=== PATIENT | male | born 1995 | race Caucasian/White ===

== ENCOUNTER 2020-12-04 20:52 | Emergency (ER) | payer BC, OTHER ==
[~2020-12-04] VITALS: Ht 182.9 cm; Wt 104.3 kg
[2020-12-04 21:00] VITALS: BP_SYST 142
== END 2020-12-04 21:50 | disposition left against medical advice (07) ==
LOC: SED 20:52
DX: S70.361A Insect bite (nonvenomous), right thigh, initial encounter (principal); W57.XXXA Bitten or stung by nonvenomous insect and other nonvenomous arthropods, initial encounter; Y93.89 Activity, other specified; Y92.89 Other specified places as the place of occurrence of the external cause; Y99.8 Other external cause status; Z53.21 Procedure and treatment not carried out due to patient leaving prior to being seen by health care provider

== ENCOUNTER 2021-01-14 10:10 | Emergency (ER) | payer BC, SELFPAY ==
[~2021-01-14] VITALS: Ht 180.3 cm; Wt 104.3 kg
[2021-01-14 10:12] VITALS: BP_SYST 130
--- NOTE | 2021-01-14 10:12 | NUR ---
Patient to ER TENT 1 to gown for evaluation. Side rails up.
--- NOTE | 2021-01-14 10:15 | NUR ---
PT CAME IN FROM HOME C/O WAKING UP THIS AM WITH COUGH AND WHEEZING, FELT SOB UPON WAKING UP. PRESENTS AMBULATORY, EVEN UNLABORED RESPIRATIONS, NO DISTRESS, V/S STABLE. STATES HE WAS COVID + 14 DAYS AGO. DENIES PAIN, DENIES FEVER, CHILLS.
--- NOTE | 2021-01-14 10:27 | NUR ---
ER DR. SLAUGHTER EXAMINING PT
[2021-01-14] MEDS ORDERED: ALBU8.5H8 INH (11:42)
[2021-01-14] MEDS ORDERED: PRED20TA PO (11:42)
--- NOTE | 2021-01-14 11:53 | NUR ---
Patient given written and verbal discharge instructions and verbalizes understanding. ER Dr. Weston discussed with patient the results and treatment provided. Patient in stable condition. ID arm band removed. Rx of Albuterol and Prednisone given. Patient educated on pain management and to follow up with PMD. Pain Scale 0. Opportunity for questions provided and answered. Medication side effect fact sheet provided.
[2021-01-14 11:54] VITALS: BP_SYST 130
== END 2021-01-14 11:53 | disposition home or self-care (01) ==
LOC: SED 10:10
DX: J40 Bronchitis, not specified as acute or chronic (principal)
CPT/HCPCS: 71045; 99283

== ENCOUNTER 2022-10-31 04:16 | Emergency (ER) | payer BC ==
[~2022-10-31] VITALS: Ht 180.3 cm; Wt 106.6 kg
[~2022-10-31 04:16] MED LIST: ALBU8.5H8 INH; PRED20TA PO
[2022-10-31 04:37] VITALS: BP_SYST 141; PULSE 87; RESP 19; TEMP 97.5; O2SAT 100
[2022-10-31] MEDS ORDERED: NACL 0.9% 1,000 ML IV ONE (05:00)
[2022-10-31] MEDS ORDERED: KETOROLAC TROMETHAMINE 15 MG VIAL IVP ONE (05:00)
[2022-10-31] MEDS ORDERED: ONDANSETRON HCL 4 MG/2 ML VIAL ONE (05:22)
[2022-10-31] MEDS ORDERED: ONDANSETRON 4 MG ODT TAB PO ONE (05:30)
[2022-10-31 05:35] LABS: BASOPHILS # (AUTO) 0.2 K/uL (0.0-0.2); BASOPHILS % (AUTO) 1.6 % (0.0-2.0); EOSINOPHILS # (AUTO) 0.1 K/uL (0.0-0.4); EOSINOPHILS % (AUTO) 0.8 % (0.0-4.0); HEMATOCRIT 44.2 % (36-54); HEMOGLOBIN 14.8 g/dL (14.0-18.0); LYMPHOCYTES # (AUTO) 2.9 K/uL (1.0-5.5); LYMPHOCYTES % (AUTO) 25.2 % (20.5-51.5); MEAN CORPUSCULAR HEMOGLOBIN 27 pg (27-31); MEAN CORPUSCULAR HGB CONC 33 % (32-36); MEAN CORPUSCULAR VOLUME 79 fL (79.0-98.0); MONOCYTES # (AUTO) 0.8 K/uL (0.0-1.0); MONOCYTES % (AUTO) 6.7 % (1.7-9.3); NEUTROPHILS # (AUTO) 7.7 K/uL (1.8-7.7); NEUTROPHILS % (AUTO) 65.7 % (40.0-70.0); PLATELET COUNT (AUTO) 227 K/uL (130-430); RED BLOOD CELL COUNT(AUTO) 5.57 MIL/uL (4.2-6.2); RED CELL DISTRIBUTION WIDTH 13.9 % (9.0-15.0); WHITE BLOOD COUNT (AUTO) 11.7 K/uL (4.8-10.8)
[2022-10-31] MEDS ORDERED: ONDANSETRON HCL 4 MG/2 ML VIAL IVP ONE (05:45)
[2022-10-31] MEDS ORDERED: ONDA-8 TL (05:59)
[2022-10-31] MEDS ORDERED: LOPE2CAP PO (05:59)
[2022-10-31] MEDS ORDERED: LOPERAMIDE HCL 2 MG CAPSULE PO ONE (06:00)
[2022-10-31 06:02] LABS: CALCIUM 8.9 mg/dL (8.4-11.0); CREATININE 1.13 mg/dL (0.55-1.30); POTASSIUM 3.5 mmol/L (3.5-5.1)
[2022-10-31 06:04] LABS: ALBUMIN 3.9 g/dL (3.4-4.8); TOTAL BILIRUBIN 0.6 mg/dL (0.0-1.0); TOTAL PROTEIN, SERUM 7.2 g/dL (6.4-8.3)
[2022-10-31 07:33] VITALS: BP_SYST 122; PULSE 65; RESP 12; TEMP 97.8; O2SAT 96
== END 2022-10-31 07:31 | disposition home or self-care (01) ==
LOC: SED 04:16
DX: R51.9 Headache, unspecified (principal); R19.7 Diarrhea, unspecified; R55 Syncope and collapse; Z79.899 Other long term (current) drug therapy; Z20.822 Contact with and (suspected) exposure to COVID-19
CPT/HCPCS: 99284; 96374; 96375; 87426; 80053; 83690; 85025; 36415; 93005; J1885; J2405